=== PATIENT | female | born 1985 ===

== ENCOUNTER 2020-04-07 22:52 | Emergency (ER) | payer SELFPAY ==
[~2020-04-07] VITALS: Ht 175.3 cm; Wt 102.4 kg
[2020-04-07 22:59] VITALS: BP 128/78
--- NOTE | 2020-04-07 23:47 | NUR ---
RT GAVE PT THE EQUIPMENT SHE NEEDED FOR CPAP AT HOME. PT INSTRUCTED TO STAY IN ROOM FOR DISCHARGE PAPERWORK. PT ELOPED FROM ROOM AND LEFT OUT THE LOBBY.
== END 2020-04-08 00:35 | disposition left against medical advice (07) ==
LOC: ED 23:52
DX: O26.892 Other specified pregnancy related conditions, second trimester (principal); R06.02 Shortness of breath; R00.0 Tachycardia, unspecified; Z76.0 Encounter for issue of repeat prescription; Z3A.25 25 weeks gestation of pregnancy
CPT/HCPCS: 99281